=== PATIENT | female | born 1960 | race Caucasian/White ===

== ENCOUNTER 2017-08-26 07:00 | Day surgery (SDC) | payer OTHER ==
[~2017-08-26 07:00] MED LIST: Bupivacaine 0.5% 30 ML SDV ONE; Lactated Ringers 1,000 ML IV SCH; Lidocaine 1% 30 ML SDV ONE; Lidocaine 1%/Sod Bicarbonate in NS 8.4% 1 ML Syringe IDERM PRN; Sodium Chloride 0.9% 10 ML Syringe FLUSH PRN
[2017-08-26] MEDS ORDERED: fentaNYL 250 MCG/5 ML SDV ONE (07:28)
[2017-08-26] MEDS ORDERED: Ondansetron 4 MG/2 ML SDV ONE (07:28)
[2017-08-26] MEDS ORDERED: Midazolam 1 MG/ML 2 ML SDV ONE (07:28)
[2017-08-26] MEDS ORDERED: Propofol 200 MG/20 ML SDV ONE ×2 (07:28→08:44)
[2017-08-26] MEDS ORDERED: Lidocaine 1% 4 ML ONE (07:29)
--- NOTE | 2017-08-26 07:35 | PCM.PREANE ---
Preanesthetic Assessment - Anesthesia/Transfusion/Family Hx Anesthesia History: Prior Anesthesia Without Reaction Family History of Anesthesia Reaction: No Transfusion History: No Prior Transfusion(s) - Review of Systems General: No Symptoms Pulmonary: No Symptoms Cardiovascular: No Symptoms Gastrointestinal: No Symptoms Neurological: No Symptoms Other: Reports: None - Physical Assessment NPO Status Date: 08/25/17 NPO Status Time: 00:00 Pulse: 64 O2 Sat by Pulse Oximetry: 93 Respiratory Rate: 16 Blood Pressure: 150/100 Temperature: 36.7 C Height: 1.57 m Weight: 109.044 kg ASA Class: 2 Mental Status: Alert & Oriented x3 Airway Class: Mallampati = 2 Dentition: Reports: Normal Dentition Thyro-Mental Finger Breadths: 3 Mouth Opening Finger Breadths: 2 ROM/Head Extension: Full Lungs: Clear to Auscultation, Normal Respiratory Effort Cardiovascular: Regular Rate, Regular Rhythm - Lab Values: on chart - Imaging/EKG Impressions: on chart - Allergies Allergies/Adverse Reactions: Allergies Allergy/AdvReac Type Severity Reaction Status Date / Time No Known Allergies Allergy Verified 08/25/17 14:57 - Anesthesia Plan Pre-Op Medication Ordered: None - Acknowledgements Anesthesia Type Planned: MAC Pt an Appropriate Candidate for the Planned Anesthesia: Yes Alternatives and Risks of Anesthesia Discussed w Pt/Guardian: Yes Pt/Guardian Understands and Agrees with Anesthesia Plan: Yes PreAnesthesia Questionnaire HEENT History: Reports: None Cardiovascular History: Reports: None Respiratory History: Reports: None Gastrointestinal History: Reports: GERD Genitourinary History: Reports: None Musculoskeletal History: Reports: Arthritis Neurological History: Reports: None Psychiatric History: Reports: None Endocrine/Metabolic History: Reports: Obesity/BMI 30+ Hematologic History: Reports: None Immunologic History: Reports: None Oncologic (Cancer) History: Reports: None Dermatologic History: Reports: None - Past Surgical History Head Surgeries/Procedures: Reports: None HEENT Surgical History: Reports: None Cardiovascular Surgical History: Reports: None Respiratory Surgical History: Reports: None GI Surgical History: Reports: None Female Surgical History: Reports: None Male Surgical History: Reports: None Endocrine Surgical History: Reports: None Neurological Surgical History: Reports: None Oncologic Surgical History: Reports: None Dermatological Surgical History: Reports: None - HOME MEDS Home Medications: Home Meds Naproxen Sodium [Aleve] 220 mg PO Q12HR PRN 08/25/17 [History] Omeprazole Magnesium [Prilosec Otc] 20 mg PO DAILY 08/25/17 [History] - CURRENT (IN HOUSE) MEDS Current Meds: Current Medications Lactated Ringer's (Ringers, Lactated) 1,000 mls @ 125 mls/hr IV ASDIRECTED ALEXY Stop: 08/26/17 23:00 Lidocaine/Sodium Bicarbonate (Buffered Lidocaine 1% In Ns 8.4%) 0.25 ml IDERM ONETIME PRN PRN Reason: Prior to IV Start Stop: 08/26/17 18:00 Sodium Chloride (Saline Flush) 10 ml FLUSH ASDIRECTED PRN PRN Reason: Keep Vein Open Stop: 08/26/17 18:00 Discontinued Medications Bupivacaine HCl (Marcaine 0.5%) Confirm Administered Dose 30 ml .ROUTE .STK-MED ONE Stop: 08/26/17 06:59 Fentanyl (Sublimaze) Confirm Administered Dose 250 mcg .ROUTE .STK-MED ONE Stop: 08/26/17 07:29 Lidocaine HCl (Xylocaine-Mpf 1%) Confirm Administered Dose 4 mls @ as directed .ROUTE .STK-MED ONE Stop: 08/26/17 07:30 Lidocaine HCl (Xylocaine-Mpf 1%) Confirm Administered Dose 30 ml .ROUTE .STK- MED ONE Stop: 08/26/17 06:59 Midazolam HCl (Versed 1 Mg/Ml) Confirm Administered Dose 2 mg .ROUTE .STK-MED ONE Stop: 08/26/17 07:29 Ondansetron HCl (Zofran) Confirm Administered Dose 4 mg .ROUTE .STK-MED ONE Stop: 08/26/17 07:29 Propofol (Diprivan 20 Ml) Confirm Administered Dose 200 mg .ROUTE .STK-MED ONE Stop: 08/26/17 07:29
[2017-08-26] MEDS ORDERED: ceFAZolin 1 GM Vial ONE (08:31)
[2017-08-26] MEDS ORDERED: Ketorolac 30 MG/ML SDV ONE (09:27)
--- NOTE | 2017-08-26 09:38 | PCM.OPNOTE ---
- General Post-Op/Procedure Note Date of Surgery/Procedure: 08/26/17 Operative Procedure(s): Excision Ganglion Cyst, RIGHT foot Pre Op Diagnosis: Painful/Symptomatic Ganglion Cyst, RIGHT foot Post-Op Diagnosis: Same Anesthesia Technique: General LMA, Local Primary Surgeon: Gerardo Castaneda II Anesthesia Provider: Abraham Humphrey Pathology: soft-tissue EBL in mLs: 10 Complications: None Condition: Good Free Text/Narrative:: Patient left OR for recovery with vital signs stable & vascular status grossly intact, RIGHT foot.
[2017-08-26] MEDS ORDERED: fentaNYL 100 MCG/2 ML SDV IVPUSH PRN (09:44)
--- NOTE | 2017-08-26 09:46 | PCM.POSTAN ---
POST ANESTHESIA ASSESSMENT - MENTAL STATUS Mental Status: Alert, Oriented - VITAL SIGNS Pulse Rate: 86 SaO2: 94 Resp Rate: 20 Blood Pressure: 133/96 Temperature: 36.8 C - RESPIRATORY Respiratory Status: Respiratory Rate WNL, Airway Patent, O2 Saturation Stable, Supplemental Oxygen - CARDIOVASCULAR CV Status: Pulse Rate WNL, Blood Pressure Stable - GASTROINTESTINAL GI Status: No Symptoms - PAIN Pain Score: 0 - POST OP HYDRATION Hydration Status: Adequate & Stable - OBSERVATIONS Free Text/Narrative:: no anesthesia complications noted
--- NOTE | 2017-08-26 11:40 | PCM48HPAN ---
Post Anesthesia Note - EVALUATION WITHIN 48HRS OF ANESTHETIC Vital Signs in Normal Range: Yes Patient Participated in Evaluation: Yes Respiratory Function Stable: Yes Airway Patent: Yes Cardiovascular Function Stable: Yes Hydration Status Stable: Yes Pain Control Satisfactory: Yes Nausea and Vomiting Control Satisfactory: Yes Mental Status Recovered: Yes Pulse Rate: 86 Resp Rate: 18 Temperature: 36.8 C Blood Pressure: 133/96 - COMMENTS/OBSERVATIONS Free Text/Narrative:: no anesthesia complications noted
--- NOTE | 2017-08-26 17:17 | OR ---
DATE OF OPERATION: 08/26/2017 SURGEON: Gerardo Castaneda II, DPM LOCATION: [place], [place]. ANESTHESIA: LMA general with local block about the right foot. ANESTHESIA PROVIDER: Abraham Humphrey CRNA. HEMOSTASIS: Right pneumatic ankle tourniquet at 250 mmHg pressure. PREOPERATIVE DIAGNOSIS: Painful symptomatic ganglionic cyst, right foot. POSTOPERATIVE DIAGNOSIS: Painful symptomatic ganglionic cyst, right foot. OPERATION PERFORMED: Excision of ganglion cyst, right foot. DESCRIPTION OF PROCEDURE: Upon arrival and admission to the hospital, the patient was examined, cleared for surgery by the assigned anesthesia provider. IV access was obtained in the preoperative area after which the patient was given prophylactic antibiotics consisting of 2 g of Ancef IV piggyback. The patient was then brought to the OR via gurney and transferred on to the operating room table in the supine position. The patient was given a combination of sedations and was adequately sedated before being intubated for LMA general anesthesia. During this time of sedation, the patient received 10 mL of 1:1 mixture of 1% lidocaine plain and 0.5% Marcaine plain in the form of local infiltrative block about the ganglionic cyst. The right lower extremity was then wrapped with cotton Webril padding above the ankle joint in preparation for a nonsterile pneumatic ankle tourniquet. It was then draped with a sterile drape. The right lower extremity was then prepped and draped in usual aseptic manner. Right lower extremity was then elevated to facilitate exsanguination before inflating the right pneumatic ankle tourniquet to 250 mmHg pressure. The right lower extremity was placed back to the level of the operating room table and attention was then directed over the dorsal central aspect of the right midfoot where an approximately 2 cm x 1 cm subcutaneous soft tissue mass, most likely consistent with a ganglionic cyst was located. It was just lateral to the high point of this cyst and a controlled depth skin incision measuring 4 cm was created in a linear fashion, over the right midfoot. This was a controlled depth skin incision that was taken down to the level of subcutaneous structures with care taken to retract the vital neurovascular structures within the area as well as cauterize and ligate all superficial bleeders as deemed necessary. Continuous soft tissue dissection was taken down to the level of subcutaneous structures and after release of the deep fascia and underlying the extensor digitorum brevis muscle belly, there was noted to be a fibrous soft tissue in enclosed mass with numerous venous vasculature coursing through it and around it. The cyst was then freed from its underlying soft tissue attachments, coming to rest just above the periosteal tissue overlying the midfoot of the right foot. The cyst was removed from the wound in toto and intact and was sent to pathology for gross and microscopic evaluation. Later the right lower extremity was then copiously lavaged with sterile saline solution about the operatory site. Closure was undertaken utilizing 3-0 Vicryl and 4-0 Vicryl at the subcuticular level and 4-0 nylon on to the skin to reapproximate it. As postoperative anesthesia the patient received an additional 10 mL of 0.5% Marcaine plain and dressings would consist of Betadine soaked Adaptic gauze, 4x4 gauze, Kerlix, and an Paul bandage. Upon completion of the surgery, the right pneumatic ankle tourniquet was deflated and it was noted that digits 1 through 5 of the right lower extremity became pink, indicating normal vascular perfusion return. The patient did tolerate the procedure and anesthesia well and will leave the OR for recovery with her vital signs being stable. The digits 1 through 5 of the right foot with no apparent complications. In recovery, patient received written and oral postop instructions as well as postoperative pain medication. The patient will ambulate partial weightbearing with a postoperative shoe fitted and dispensed by the postoperative anesthesia care unit for her right foot and ankle. Estimated blood loss for this procedure was considered 10-15 but negligible. There were no apparent or obvious complications. ESTIMATED BLOOD LOSS: MMODAL /[id number]
== END 2017-08-26 12:24 | disposition home or self-care (01) ==
LOC: JD.SDS 07:00
PROVIDERS: ATTEND Podiatrist Foot & Ankle Surgery
DX: M67.471 Ganglion, right ankle and foot (principal); K21.9 Gastro-esophageal reflux disease without esophagitis; E66.9 Obesity, unspecified; Z68.41 Body mass index [BMI] 40.0-44.9, adult; Z79.899 Other long term (current) drug therapy
CPT/HCPCS: 28090; J0690; J1885; J2250; J2405; J3010; J7120; J2704